=== PATIENT | female | born 1985 | race Caucasian/White ===

== ENCOUNTER 2019-11-25 10:53 | Outpatient (CLI) | payer BC, SELFPAY ==
--- NOTE | ~2019-11-25 | US_ITS ---
EXAMINATION: US pelvic complete w TV EXAM DATE: 11/25/2019 11:57 INDICATION: Ovarian cyst follow-up. TECHNIQUE: Pelvic transabdominal and transvaginal sonogram was performed. There are multiple graysca le and Doppler images available for interpretation. Comparison is made to prior examination from 04/25. FINDINGS: Uterus measures 8.0 x 3.8 x 4.7 cm, with IUD centrally located inside the endometrial cavi ty. Endometrial stripe measures 5 mm, within normal limits. There is no free pelvic fluid. Right adnexa: The ovary measures 2.7 x 1.5 x 1.8 cm, with small hyperechoic region unchanged in size measuring about 9 x 10 x 11 mm, a benign finding. Hyperechogenicity could indicate that this is fat w ithin a small teratoma given that it has persisted. Ovarian vascular flow confirmed. Left adnexa: The ovary measures 1.8 x 1.1 x 1.1 cm and is morphologically normal. Ovarian vascular fl ow confirmed. IMPRESSION: Stable small right ovarian hyperechoic lesion unchanged, a benign finding. Could be small teratoma given that this did not resolve. Reviewed, dictated and finalized at location A. IMPRESSION: Stable small right ovarian hyperechoic lesion unchanged, a benign f inding. Could be small teratoma given that this did not resolve.
== END 2019-11-25 10:54 | disposition home or self-care (01) ==
PROVIDERS: PCP Family Medicine; Visit Provider Obstetrics & Gynecology Gynecology
DX: N83.201 Unspecified ovarian cyst, right side (principal)
CPT/HCPCS: 76830; 76856

== ENCOUNTER → 2020-11-22 08:33 | Outpatient (CLI) | payer BC, SELFPAY ==
--- NOTE | ~2020-11-22 | US_ITS ---
EXAMINATION: US transvaginal DATE: 11/22/2020 09:02 INDICATION: Right ovarian cyst TECHNIQUE: Multiple transabdominal and endovaginal sonographic images of the pelvis were obtained. COMPARISON: 11/25/2019 and 05/15/2019 FINDINGS: The uterus measures 9.2 x 4.3 x 5.2 cm. The endometrial complex measures 5 mm in thickness. T-shaped linear echogenic and shadowing IUD in expected position within the endometrial canal. The right ovar y measures 2.4 x 2.4 x 2.2 cm. No significant interval change in a 10 mm hyperechoic lesion in the ri ght ovary. The left ovary measures 3.6 x 2.3 x 3.4 cm. 2.5 cm anechoic cyst/dominant follicle in the left ovary. Vascular flow identified in both ovaries on color Doppler. There is no free fluid in the pelvis. IMPRESSION: 1. No interval change in a nonspecific 10 mm hyperechoic right ovarian lesion with stability favoring a benign etiology with differential including ovarian dermoid with hyperechoic fat or endometrioma. 2. T-shaped IUD in expected position. Reviewed, dictated and finalized at location A. IMPRESSION: 1. No interval change in a nonspecific 10 mm hyperechoic right ovarian lesion w ith stability favoring a benign etiology with differential including ovarian de rmoid with hyperechoic fat or endometrioma. 2. T-shaped IUD in expected position.
== END ==
PROVIDERS: Visit Provider Nurse Practitioner
DX: N83.201 Unspecified ovarian cyst, right side (principal); Z97.5 Presence of (intrauterine) contraceptive device
CPT/HCPCS: 76830

== ENCOUNTER → 2021-12-18 13:16 | Outpatient (CLI) | payer BC, SELFPAY ==
--- NOTE | ~2021-12-18 | US_ITS ---
EXAMINATION: US transvaginal DATE: 12/18/2021 13:45 INDICATION: Unspecified ovarian cyst TECHNIQUE: Multiple endovaginal sonographic images of the pelvis were obtained. COMPARISON: 11/22/2020, 05/15/2019 FINDINGS: The uterus measures 8.9 x 4.0 x 5.2 cm. The endometrial complex measures 7 mm. An IUD is se en in in expected position. The right ovary measures 2.6 x 1.6 x 2.5 cm. There is a stable, chronic 1 .1 cm hyperechoic lesion in the right ovary. The left ovary measures 3.6 x 2.2 x 3.1 cm. There is nor mal vascular flow in the ovaries. There is no free fluid in the pelvis. IMPRESSION: 1. Hyperechoic lesion of the right ovary, stable since 2018, most consistent with small dermoid or en dometrioma. Reviewed, dictated and finalized at location A. IMPRESSION: 1. Hyperechoic lesion of the right ovary, stable since 2018, most consistent wi th small dermoid or endometrioma.
== END ==
PROVIDERS: PCP Family Medicine; Visit Provider Nurse Practitioner
DX: N83.201 Unspecified ovarian cyst, right side (principal)
CPT/HCPCS: 76830

== ENCOUNTER 2022-02-27 00:27 | Day surgery (SDC) | payer BC, SELFPAY ==
[2022-02-19 12:28] VITALS: BMI 35.4
--- NOTE | 2022-02-19 12:39 | PC.NURSE ---
Report to the Outpatient Waiting Room, entrance under the green pavilion located off [facility], at time 0630 on date 02/27/22. OR Time: 0830. - You and your visitor will be asked to self-screen and do not enter if you have any COVID symptoms. - Only one visitor and NO children visitors are allowed at this time. - The patient visitor is requested to leave or wait in car when not with patient due to restrictions. - A mask is required within the hospital. Patients may have clear liquids (water, carbonated beverages, clear teas, apple juice) until 3 hours prior to surgery with a maximum of 20 ounces. - No food from midnight until time of surgery Take the following medications with a SIP of water the morning of surgery: HYDROXYZINE (IF NEEDED) Medications to discontinue per physician: N/A Date to take last dose: N/A Please no make-up, nail swedish, hairspray, perfume, deodorant, or body powder the day of surgery. No jewelry (including any body piercings) or valuables the day of surgery, leave them at home. Please take a shower or bath the night before, or the morning of, surgery with an antibacterial soap. Wear comfortable, loose fitting clothing. - Jewelry must be removed prior to entering the operating room. Rings and piercings that are not removed may be cut off. - The hospital will not accept responsibility for valuables. - Please leave all valuables, including medications, at home the day of surgery. If you are going home after surgery, a licensed motor coach bus driver must drive you home. - NO public transportation without another adult. - We recommend that an adult stay with you for 24 hours following discharge. - We also recommend that you do not drive, make important decision, drink alcoholic beverages, or take any drugs that were not prescribed by your health care provider for at least 24 hours after your discharge time. Follow any additional instructions given to you from your surgeon. If you or anyone in your household have experienced Covid symptoms in the past week, please notify your surgeon or the nurse liaison at the phone number below for possible testing. Telephone instructions given to PT - DENNIS ERICKSON and asked if any additional questions and then verbalized understanding. Patient advised to call surgeon office or pre surgery nurse liaison [phone] if any additional questions.
[2022-02-27] VITALS (11 sets, daily range): BP systolic 112–138; BP diastolic 66–88; PULSE 64–95; RESP 12–20; TEMP 36.4–36.9; O2SAT 99–100
--- NOTE | 2022-02-27 06:57 | WPDHPUPDATE1 ---
History and Physical Update Update Date/Time: 02/27/22 06:57 History and Physical has been reviewed, including an updated exam of the patient. There are NO changes in the patient's condition. Risks, benefits, and alternatives have been discussed and questions answered. Patient agrees to proceed with procedure.
--- NOTE | 2022-02-27 07:00 | P.OP_ITS ---
Procedure Note - Detailed Date of Procedure 02/27/22 Pre-op Diagnosis Macromastia Post-op Diagnosis Same Procedure Performed Bilateral reduction mammaplasty Surgeon Edgar Meeks MD Anesthesia General Findings Inverted T Superior medial pedicle Tissue removed: Right - 1527.2 grams Left - 1582.9 grams Description of Procedure She is here today for bilateral breast reduction. Previously and again today the risks, benefits, alternatives were discussed in extensive detail. I wanted her to be very realistic about the risks involved as well as expectations. We discussed aftercare and what to monitor for. She understands we can never guarantee final breast size and there will always be asymmetry. I was very upfront and honest about the risks of sensation change and even nipple loss (). Made sure answered all of her questions to her satisfaction today and consent was obtained. She was marked in the preoperative holding area with their verification. The patient was taken to the operating room placed supine on the operating table. Anesthesia was provided by anesthesiology. She was prepped and draped in a standard sterile fashion. A surgical time-out was taken. Stab incisions were made and I tumessed with a tumescent solution. I marked out the nipple-areolar complex at 42 mm. I then de-epithelialized the pedicle. The pedicle was well left well more than 2 cm in thickness. I then removed the inferior portion of the breast as well as the central keel to get shape based on preoperative planning. At this point copiously irrigated with saline solution and verified a strict hemostasis. I reapproximated the pillars using a 2-0 PDS. I tailor tacked the breast into place with suzie. She was placed in a sitting position. I verified the nipple-areolar complex position based on preoperative markings, intraoperative measurements, and observation which were in full agreement. This nipple-areolar complex was marked at 42 mm in size. I then placed supine and de-epithelialized this. Nipple-areolar complex was inset with 3-0 Monocryl. I closed IMF deep with 1 strattafix. I closed the vertical incision with 3-0 Monocryl in the IMF with 3- 0 stratafix. Then everything was closed using a running subcuticular 4-0 Monocr yl followed by Steri-Strips. A dressing was placed followed by surgical bra. Patient was awoke and taken to PACU without difficulty. All instrument sponge counts were correct at the end of the case. Estimated Blood Loss 100 Drains No Packing No Pathology Yes (Bilateral breast tissue) Complications No immediate complications Condition Stable Disposition PACU
[2022-02-27] MEDS: LACTATED RINGERS 1,000 ML 30 ML IV CONT ×2 (07:45→10:45)
--- NOTE | 2022-02-27 07:51 | WPDANESEPPF ---
Anes - Initial Pre Proc Eval Procedure: Operation Date: 02/27/22 08:30 Proposed Procedures p Bilateral Breast Reduction - Edgar Meeks MD Date/Time: 02/27/22 07:51 Surgeon: Edgar Meeks MD Pre Op Diagnosis: Macromastia Patient Data Age: 36 Gender: F Height: 1.75 m Weight: 108.9 kg Allergies Allergy/AdvReac Type Severity Reaction Status Date / Time No Known Allergies Allergy Mild Verified 02/20/22 10:01 Cantaloupe Allergy Mild Rash Uncoded 02/20/22 10:01 HONEYDEW Allergy Mild RASH Uncoded 02/20/22 10:01 Home Medications Medication Instructions Recorded Confirmed Type levonorgestrel 20 mcg/24 hours (7 1 insert intrauterine ONCE 07/12/21 02/19/22 History yrs) 52 mg intrauterine device (Mirena) clobetasol 0.05 % topical cream 1 applic topical BID PRN Rash 02/19/22 02/19/22 History docusate sodium 100 mg capsule 100 mg PO DAILY #14 caps 02/19/22 Rx (Colace) hydrocodone 5 mg-acetaminophen 325 1 tablet PO Q6H PRN pain #30 tabs 02/19/22 02/19/22 Rx mg tablet ondansetron 4 mg disintegrating 4 mg PO Q8H #21 tabs 02/19/22 Rx tablet enoxaparin 40 mg/0.4 mL 40 mg subcut DAILY 02/27/22 02/27/22 History subcutaneous syringe Laboratory Tests 02/27/22 07:35 Cotinine Pending Patient hx anesthesia problems: none Family hx anesthesia problems: none Results Review: All pre-operative results and documents have been reviewed as part of the pre-operative evaluation. [facility] Past Medical History Medical History Migraine Psoriasis Surgical History Surgical History History of spinal fusion Family History Family History Father Family history of diabetes mellitus in first degree relative Family history of coronary artery disease Mother Family history of malignant neoplasm of urinary bladder Social History Social History Smoking status: Never smoker Alcohol intake: current Drinks per week: 2 Alcohol use details: social Substance use: never Substance use type: does not use Living arrangements: with family Gender identity (if verbalized by the patient): Female Sexual Orientation (if Verbalized by the Patient): Straight or Heterosexual Spiritual care concerns: No Anes - Eval Final PreProcedure Day of Procedure 02/27/22 07:51 Patient weight: obese Heart: regular rate and rhythm Lungs: clear to auscultation Airway: Mallampati scale class II Neurological: alert and oriented Last oral intake: >/= 8 hours ASA classification: II Emergent: no Anesthetic plan: proceed Anesthesia type and monitoring: general LMA and ETT and standard monitoring Results Review: All pre-operative results and documents have been reviewed as part of the pre-operative evaluation. Informed Consent: The patient's anesthetic plan and its attendant risks and benefits were discussed with the patient/family/POA. Questions were solicited and answers provided to the satisfaction of the patient/family/POA.
[2022-02-27 07:52] LABS: Urine Cotinine NEGATIVE
[2022-02-27] MEDS: ceFAZolin 2 GM/D5W 50 ML 2 GM/50 ML BAG IVPB (08:07)
[2022-02-27] MEDS: TRANEXAMIC ACID 1,000MG/ISO100 1,000 MG/100 ML BAG 200 MG IVPB (08:18)
[2022-02-27] MEDS: LACTATED RINGERS IRRIG 1,000 ML, LIDOCAINE HCL 1% LOCAL INJ 50 ML, EPINEPHrine HCL INJ ... INFILTRATE (08:35)
[2022-02-27] MEDS: ONDANSETRON INJ 4 MG/2 ML VIAL IV PUSH (11:23)
[2022-02-27] MEDS: diphenhydrAMINE HCl INJ 50 MG/ML VIAL 12.5 MG IV PUSH ×2 (11:32→12:07)
[2022-02-27] MEDS: SCOPOLAMINE 1.5 MG PATCH TRANSDERM (11:33)
[2022-02-27] MEDS: oxyCODONE HCL (*CRX) 5 MG TAB IR PO (13:08)
== END 2022-02-27 13:52 | disposition home or self-care (01) ==
PROVIDERS: PCP Family Medicine; Visit Provider Surgery Plastic and Reconstructive Surgery
PROC: 0HBV0ZZ Excision of Bilateral Breast, Open Approach (ICD-10-PCS; CPT 19318; principal; 2022-02-27 08:30)
DX: N62 Hypertrophy of breast (principal); L40.9 Psoriasis, unspecified; Z98.1 Arthrodesis status; Z79.899 Other long term (current) drug therapy; E66.9 Obesity, unspecified; Z68.35 Body mass index [BMI] 35.0-35.9, adult
CPT/HCPCS: 19318; 80307; 88305; A9270; J0171; J0690; J1100; J1170; J1200; J1630; J2250; J2405; J2704; J3010; J7120

== ENCOUNTER 2022-06-27 11:38 | Outpatient (CLI) | payer BC, SELFPAY ==
[2022-06-27 12:53] LABS: Influenza A QL RT-PCR Negative (Negative); Influenza B QL RT-PCR Negative (Negative); SARS-CoV-2 RNA PCR Negative
== END 2022-06-27 11:39 | disposition home or self-care (01) ==
PROVIDERS: PCP Family Medicine; Visit Provider Physician Assistant
DX: R50.9 Fever, unspecified (principal); Z20.822 Contact with and (suspected) exposure to COVID-19
CPT/HCPCS: 87636

== ENCOUNTER → 2022-07-31 10:00 | Outpatient (CLI) | payer BC, SELFPAY ==
--- NOTE | ~2022-07-31 | MMUS_ITS ---
EXAMINATION: MM diagnostic francisco BI w jimena, US breast BI complete HISTORY: There is a ridge along the reduction mammoplasty scar of the right breast TECHNIQUE: Full field and spot bilateral ML, MLO and CC 3-D tomosynthesis images were performed and s ynthetic 2-D images were generated. CAD analysis was submitted and interpreted. High resolution compl ete bilateral breast ultrasound examination including all 4 quadrants and subareolar areas was perfor med. COMPARISON: None BREAST PARENCHYMAL COMPOSITION: The breasts are heterogeneously dense, which may obscure small masses . FINDINGS: MAMMOGRAPHIC FINDINGS: There is fibroglandular asymmetry, likely due to bilateral reduction mammoplasty. No suspicious repro ducible mass is evident. There is asymmetry, likely due to bilateral reduction mammoplasty. No malign ant calcification, skin thickening or retraction is noted. ULTRASOUND: Right breast: Circumscribed 3.3 x 3.3 x 3.5 mm probable benign lesion, possibly a lymph node, at 9:00 6 cm from nip ple Left breast: 1:00 subareolar area: 3.2 x 2.7 x 3.2 mm circumscribed sonolucency without internal vascularity or po sterior features 5:00-6:00 scar, 4 cm from nipple: 4.5 x 4.9 mm hypoechoic area without internal vascularity or window installation subcontractor ior features IMPRESSION: 1. Probable benign findings; probable postoperative change from bilateral reduction mammoplasty 2. Six-month diagnostic bilateral mammogram and bilateral breast ultrasound follow-up is recommended BI-RADS category 3, probably benign findings. Reviewed, dictated and finalized at location A. ER MAKER IMPRESSION: 1. Probable benign findings; probable postoperative change from bilateral reduc tion mammoplasty 2. Six-month diagnostic bilateral mammogram and bilateral breast ultrasound fol low-up is recommended BI-RADS category 3, probably benign findings.
== END ==
PROVIDERS: PCP Obstetrics & Gynecology Gynecology; Visit Provider Obstetrics & Gynecology Gynecology
DX: N63.10 Unspecified lump in the right breast, unspecified quadrant (principal); R92.8 Other abnormal and inconclusive findings on diagnostic imaging of breast
CPT/HCPCS: 76641; 77062; 77066; G0279

== ENCOUNTER → 2022-12-26 10:58 | Outpatient (CLI) | payer BC, SELFPAY ==
--- NOTE | ~2022-12-26 | US_ITS ---
EXAMINATION: US transvaginal DATE: 12/26/2022 11:24 INDICATION: Unspecified ovarian cyst, right side. TECHNIQUE: Multiple transvaginal sonographic images of the pelvis were obtained. COMPARISON: Ultrasound 12/18/2021, 05/15/19 FINDINGS: The uterus measures 9.0 x 4.6 x 9.4 cm. There is no free fluid in the pelvis. The endometrial complex measures 6 mm in thickness. There is an intrauterine device in expected position. The right ovary me asures 3.1 x 2.0 x 2.6 cm. There is a 1.2 cm hyperechoic mass in right ovary. The left ovary measures 3.0 x 2.0 x 2.4 cm. IMPRESSION: 1. 1.2 cm hyperechoic mass in right ovary, stable from 05/15/2019, likely a benign mass such as a tina moid or endometrioma. Reviewed, dictated and finalized at location A. IMPRESSION: 1. 1.2 cm hyperechoic mass in right ovary, stable from 05/15/2019, likely a russell ign mass such as a dermoid or endometrioma.
== END ==
PROVIDERS: PCP Family Medicine; Visit Provider Nurse Practitioner
DX: N83.201 Unspecified ovarian cyst, right side (principal); N83.9 Noninflammatory disorder of ovary, fallopian tube and broad ligament, unspecified
CPT/HCPCS: 76830

== ENCOUNTER → 2023-01-28 09:21 | Outpatient (CLI) | payer BC, SELFPAY ==
--- NOTE | ~2023-01-28 | MMUS_ITS ---
EXAMINATION: MM diagnostic francisco BI w jimena, US breast BI limited HISTORY: Six-month follow-up for probably benign breast masses TECHNIQUE: Craniocaudal, mediolateral, and mediolateral oblique 3-D tomosynthesis images of the breas ts were performed and synthetic 2-D images were generated. CAD analysis was submitted and interpreted . High resolution limited bilateral breast ultrasound was performed. COMPARISON: 07/31/2022 BREAST PARENCHYMAL COMPOSITION: There are scattered areas of fibroglandular density. FINDINGS: MAMMOGRAPHIC FINDINGS: No suspicious mass, calcification, or architectural distortion are identified in either breast to sug gest malignancy. There has been no suspicious interval change. ULTRASOUND: Previously described sonographically detected masses at the 9:00 location of the right breast in the 1:00 location of the left breast are no longer identified. There is a stable hypoechoic mass at the 5 :30 location 4 cm from the nipple of the left breast near the area of the reduction mammoplasty scar. IMPRESSION: 1. Probably benign changes of the left breast related to reduction mammoplasty. 2. Recommend 6 month follow-up limited left breast ultrasound. BI-RADS category 3, probably benign findings. Reviewed, dictated and finalized at location A. IMPRESSION: 1. Probably benign changes of the left breast related to reduction mammoplasty. 2. Recommend 6 month follow-up limited left breast ultrasound. BI-RADS category 3, probably benign findings.
== END ==
PROVIDERS: PCP Family Medicine; Visit Provider Obstetrics & Gynecology Gynecology
DX: R92.8 Other abnormal and inconclusive findings on diagnostic imaging of breast (principal)
CPT/HCPCS: 76642; 77062; 77066; G0279

== ENCOUNTER 2023-08-01 16:36 | Outpatient (CLI) | payer BC, SELFPAY ==
--- NOTE | ~2023-08-01 | XR_ITS ---
EXAMINATION: XR chest 2V DATE: 08/01/2023 16:51 INDICATION: Cough. Shortness of breath. TECHNIQUE: Frontal and lateral views of the chest were obtained. COMPARISON: Chest 2 views 08/27/2012 FINDINGS: There is no pneumonia, pleural effusion, or pneumothorax. The heart size is normal. There i s mild chronic anterior wedging of vertebral bodies at thoracolumbar junction. IMPRESSION: 1. No acute cardiopulmonary disease. Reviewed, dictated and finalized at location E. ER HAND
== END 2023-08-01 16:37 | disposition home or self-care (01) ==
LOC: ANHIMG 16:36
PROVIDERS: PCP Family Medicine; Visit Provider Physician Assistant Medical
DX: R50.9 Fever, unspecified (principal); R05.9 Cough, unspecified
CPT/HCPCS: 71046

== ENCOUNTER → 2023-08-06 10:08 | Outpatient (CLI) | payer BC, SELFPAY ==
--- NOTE | ~2023-08-06 | US_ITS ---
EXAMINATION: US breast LT limited HISTORY: Six-month follow-up for probably benign left breast mass TECHNIQUE: Limited left breast ultrasound is performed FINDINGS: No persistent mass is identified at the 5:30 location in the left breast. There is shadowin g in the area of the reduction mammoplasty scar. IMPRESSION: No suspicious sonographically detected mass identified. Continued clinical follow-up is recommended. BI-RADS Category 2: Benign finding(s). Reviewed, dictated and finalized at location A. ERY ANALYST IMPRESSION: No suspicious sonographically detected mass identified. Continued clinical foll ow-up is recommended. BI-RADS Category 2: Benign finding(s).
== END ==
PROVIDERS: PCP Family Medicine; Visit Provider Obstetrics & Gynecology Gynecology
DX: N63.20 Unspecified lump in the left breast, unspecified quadrant (principal); R92.8 Other abnormal and inconclusive findings on diagnostic imaging of breast
CPT/HCPCS: 76642

== ENCOUNTER 2023-09-26 09:53 | Outpatient (CLI) | payer BC, SELFPAY ==
--- NOTE | ~2023-09-26 | DEXA_ITS ---
Bone Density Report Name: DENNIS ERICKSON Age: 37 Sex: Female Ethnicity: White Date of : 1985 Indication: prior fracture; Referring Provider: DAGOBERTO GAMBLE Study: Bone densitometry was performed. Exam Date: September 26, 2023 Accession number: [id number] Bone Density: Region BMD T-score Z-score Classification AP Spine (L1, L2, L3) 1.062 0.4 0.5 Normal Femoral Neck (Left) 1.017 1.5 1.7 Normal Total Hip (Left) 1.149 1.7 1.8 Normal Femoral Neck (Right) 1.032 1.7 1.8 Normal Total Hip (Right) 1.102 1.3 1.4 Normal Total Hip Mean 1.126 1.5 1.6 Normal World Health Organization criteria for BMD impression classify patients as: Normal (T-score at or above -1.0), Osteopenia (T-score between -1.0 and -2.5), or Osteoporosis (T-score at or below -2.5). 10-year Fracture Risk: FRAX not reported because: Premenopausal woman All T-scores for Spine Total, Hip Total, Femoral Neck at or above -1.0 Prior hip or vertebral fracture Clinical Information Provided by Patient: Have had a previous hip or vertebral fracture Has had a low trauma fracture Patient maximum height was 69.5 No regular weight bearing exercise Drinks caffeinated beverages Onset of menses at age 18 Premenopausal Number of children 2 Missed period for more than 6 months in a row Impression: The patient's bone mass is within expected range for age, gender and ethnicity. The patient has risk factors, including: previous fracture. Discussion: BONE DENSITY IS WITHIN EXPECTED LIMITS FOR AGE, SEX AND RACE. HISTORY OF FRACTURE. Although there is a predictable association between low bone mass and the risk of osteoporotic fractures in untreated postmenopausal women, there are no data relating bone density and fracture risk in younger women. The ISCD position is that the diagnosis of ?low bone mass? or ?osteoporosis? should not be made on densitometric criteria alone. WHO criteria only apply to postmenopausal women. Further evaluation should be considered given the patient's history of fracture at a young age. The patient should follow a healthful lifestyle (good nutrition with adequate calcium and vitamin D, and appropriate weight-bearing exercise). Follow-Up: Consider a repeat BMD and Vertebral Fracture Assessment (VFA) exam in 2 years or sooner if medically necessary, to reassess this patient's status. Reported by: GENESIS on 09/26/2023 10:11:00 AM. Reviewed, dictated and finalized at location A. [facility]
== END 2023-09-26 09:54 ==
LOC: MICIMG 09:54
PROVIDERS: PCP Physician Assistant Medical; Visit Provider Physician Assistant Medical
DX: M48.50XA Collapsed vertebra, not elsewhere classified, site unspecified, initial encounter for fracture (principal)
CPT/HCPCS: 77080

== ENCOUNTER 2025-04-11 15:46 | Emergency (ER) | payer BC, SELFPAY ==
[2025-04-11 15:59] VITALS: BP 115/67; PULSE 92; RESP 16; TEMP 36.2; O2SAT 99
--- NOTE | 2025-04-11 16:25 | ED_ITS ---
HPI - URI/Sore Throat General Chief Complaint: Upper Respiratory Infection Stated Complaint: strep symptoms, sore throat Time Seen by Provider: 04/11/25 16:14 Source: patient, RN notes reviewed and old records reviewed Mode of arrival: ambulatory Limitations: no limitations History of Present Illness HPI Narrative: 39-year-old female patient presents today complaining of a sore throat. She was started on amoxicillin on 03/29/2025 for strep throat by her PCP and finished the full prescription. States symptoms had almost fully resolved. Her last dose was 3 days ago. Today, her sore throat returned and has worsened. She also had a large tonsil stone that she dislodged. Denies any current fever. Related Data Home Medications ?Medication ?Instructions ?Recorded ?Confirmed ?Last Taken ?Type levonorgestrel (Mirena) 1 insert intrauterine ONCE 0 07/12/21 03/29/25 Unknown History Allergies Allergy/AdvReac Type Severity Reaction Status Date / Time Cantaloupe Allergy Mild Rash Uncoded 03/29/25 16:16 HONEYDEW Allergy Mild RASH Uncoded 03/29/25 16:16 [facility] Past Medical History Medical History Psoriasis Migraine Surgical History Surgical History History of spinal fusion Family History Family History Father Family history of diabetes mellitus in first degree relative Family history of coronary artery disease Mother Family history of malignant neoplasm of urinary bladder Social History Social History Smoking status: Never smoker Alcohol intake: current Drinks per week: 2 Alcohol use details: social Substance use: never Substance use type: does not use Living arrangements: with family Occupation/Education: occupation Gender identity (if verbalized by the patient): Female Sexual Orientation (if Verbalized by the Patient): Straight or Heterosexual Spiritual care concerns: No Comments At time of signature, I have reviewed and agree with nursing past medical, surgical, social and family history unless otherwise noted. Please see nursing chart for further information. There is no relevant family history pertinent to the presenting complaint Exam Narrative: GENERAL: Mildly ill-appearing, well-nourished, and in no acute distress. HEAD: Normocephalic, atraumatic. EYES: EOMI. No redness or drainage. Conjunctivae normal. ENT: Mucous membranes pink and moist. Nares clear. No rhinorrhea. TMs normal bilaterally. Throat erythematous. Tonsils 3+ without exudate. Uvula midline. NECK: Normal AROM. Supple. No lymphadenopathy. CHEST: No respiratory distress. Clear to auscultation. HEART: Regular rate and rhythm. No murmur appreciated. EXTREMITIES: Normal range of motion. No edema. SKIN: Warm, dry, no rash. Capillary refill normal. Normal skin turgor. NEURO: No focal deficits. Alert and oriented x3. Gait steady. PSYCH: Normal affect. No signs of depression or anxiety. Course Course Level of Care: Express Care Visit Vital Signs Vital signs: Vital Signs Temperature 97.1 F L 04/11/25 15:59 Pulse Rate 92 04/11/25 15:59 Respiratory Rate 16 04/11/25 15:59 Blood Pressure 115/67 04/11/25 15:59 Pulse Oximetry 99 04/11/25 15:59 Temperature 97.1 F L 04/11/25 15:59 Pulse Rate 92 04/11/25 15:59 Respiratory Rate 16 04/11/25 15:59 Blood Pressure 115/67 04/11/25 15:59 Pulse Oximetry 99 04/11/25 15:59 Reviewed MDM - URI/Sore Throat MDM Narrative Medical decision making narrative: 39-year-old female patient presents today complaining of a sore throat. She was started on amoxicillin on 03/29/2025 for strep throat by her PCP and finished the full prescription. States symptoms had almost fully resolved. Her last dose was 3 days ago. Today, her sore throat returned and has worsened. Upon exam, patient is mildly erythematous tonsils that are 3+ without exudate. Rapid strep positive. Prescription for Augmentin sent to pharmacy. Anticipatory guidance given. Vital signs stable. Patient agrees with plan. Recommend PCP or ENT follow-up if symptoms persist. Differential Diagnosis Differential diagnosis: Likely upper respiratory infection, viral infection, pharyngitis and other (strep throat) Lab Data Attestation: I reviewed the patient's lab results. Labs: Lab Results 04/11/25 Range/Units 16:32 POC Grp A Strep Screen Positive (Negative) Critical Care Time Critical Care Time Critical Care Time: No Discharge Plan Discharge Clinical Impression: Strep throat Patient Disposition: Home Condition: Stable Instructions: Antibiotic Form, Strep Throat (DC) Additional Instructions: You have tested positive for strep throat. Please take the Augmentin as prescribed until gone. You will be contagious for 24 hours after starting the medication. Take Tylenol or Ibuprofen for pain or fever, if able. Rest and stay hydrated. Follow up with your PCP in 3 days if symptoms are not improving. Go to the ER immediately if you develop worsening symptoms such as shortness of breath, difficulty swallowing. Patient Language: Emirati Prescriptions: New amoxicillin-pot clavulanate 875-125 mg tablet 1 tablet PO Q12H 10 Days Qty: 20 0RF No Action Mirena 20 mcg/24 hours (7 yrs) 52 mg intrauterine device 1 insert intrauterine ONCE Rx Instructions: as a single dose fluoxetine 20 mg capsule See Rx Instructions .ROUTE .COMPLEX Qty: 90 2RF Dose Instruction: TAKE 1 CAPSULE BY MOUTH DAILY FOR ANXIETY Rx Instructions: TAKE 1 CAPSULE BY MOUTH DAILY FOR ANXIETY Follow-up/Referrals: Angus Fox MD [Primary Care Provider, Family Practice] Stand Alone Forms: Work/School Release IP Time of Disposition: 16:37
[2025-04-11 16:36] LABS: EDSTREPNEGPOS1 Positive (Negative)
== END 2025-04-11 16:40 | disposition home or self-care (01) ==
PROVIDERS: Emergency Provider Nurse Practitioner; PCP Family Medicine
DX: J02.0 Streptococcal pharyngitis (principal)
CPT/HCPCS: 87880; 99213; G0463

== ENCOUNTER 2025-05-26 13:10 | Outpatient (CLI) | payer BC, SELFPAY ==
--- OUTSIDE RECORDS SUMMARY | 2025-05-26 14:23 | XMS_ITS | Clinical Summary ---
Author Organization [facility] Address [address] [place] [address] Care Team Providers Care Computer Programmer Analyst Name Role Phone Angus Fox MD Primary Care Provider [phone] Source Comments [facility],non-owned Affiliates and Associated Physician Practices is amultiple site organization consisting of ambulatory clinics and hospital sitesin [place], [place], [place] and [place]. This disclosure is being madepursuant to the Care Everywhere program and may not contain all information available regarding this patient. Last updated 18.[facility] Allergies Active Allergy Reactions Criticality Noted Date Comments Honeydew Urticaria Medium 12/18/2018 Medications * Be aware that medications may not be up to date on this document. Alwaysverify current medications with the patient. Vit-Fe Fumarate-FA ( VITAMIN) 28-0.8 MG tablet Take 1 tablet by mouth once daily Active escitalopram (LEXAPRO) 10 MG tablet Take 10 mg by mouth once daily Active NORETHINDRONE ACETATE PO Active Active Problems Problem Noted Date Diagnosed Date Threatened premature labor, antepartum 9 Immunizations Immunization Administration Dates Next Due [facility] [employer] primary monoval ent 12+ yr 0.3mL Purple cap 07/05/2020,06/15/2020 Social History Tobacco Use Types Packs/Day Years Used Date Smoking Tobacco: Never Smokeless Tobacco: Never Alcohol Use Standard Drinks/Week Comments No 0 (1 standard drink = 0.6 oz pur e alcohol) Comments No Sex and Gender Information Value Date Recorded Sex Assigned at Female 06/16/2020 12:47 AM [employer] Legal Sex Female 12:24 PM [employer] Gender Identity Female 06/16/2020 12:47 AM [employer] SANITARIAN Sexual Orientation Straight 06/16/2020 12 :47 AM [employer] SANITARIAN Last Filed Vital Signs Vital Sign Reading Time Taken Comments Blood Pressure 108/68 02/21/2019 10:44 AM CDT Pulse 87 02/21/2019 10:44 AM CDT Temperature 36.9 C (98.4 F) 02/21/2019 10:44 AM CDT Respiratory Rate - - Oxygen Saturation 97% 02/21/2019 10:44 AM CDT Inhaled Oxygen Concentration - - Weight 99.8 kg (220 lb) 02/21/2019 10:44 AM CDT Height 175.3 cm (5' 9) 02/21/2019 10:44 AM CDT Body Mass Index 32.49 02/21/2019 10:44 AM CDT Plan of Treatment Health Maintenance Due Date Last Done Comments HIV SCREENING 11/08/2002 HEPATITIS C SCREENING 11/04/2005 DTAP/TDAP/TD VACCINES (1 - Tdap) 11/08/2006 HEPATITIS B VACCINE (1 of 3 - 19+ 3-dose series) 11/08/2006 HPV VACCINE (1 - 3-dose SCDM series) 11/08/2014 DEPRESSION SCREENING 06/24/2024 COVID-19 VACCINE (3 - 2024-2 6 season) 2025 07/05/2020, 06/15/2020 INFLUENZA VACCINE (#1) 2025 ZOSTER VACCINE (1 of 2) 11/08/2037 HIB VACCINE Aged Out No longer eligi ble based on patient's age to complete this topic MENINGOCOCCAL (Group B) VACCINE SHARED DECISION-MAKING Aged Out No longer eligible based on patient's age to complete this topic MENINGOCOCCAL GROUPS A/C/Y/W VACCINE Aged Out No longer eligible b ased on patient's age to complete this topic PNEUMOCOCCAL VACCINE Aged Out No long er eligible based on patient's age to complete this topic Insurance [employer] SELF PAY NO INSURANCE Member Subscriber Plan / Payer (Ef fective for All Dates) Name:Traci Erickson Member ID:Not on file Relation to Subscriber:Self Name:Traci Erickson Subscriber ID:Not on file Payer ID:Not on file Group ID:Not on file Type:Self Pay Address: [place], [place] ANTHEM Care Teams Computer Programmer Analyst Relationship Specialty Start Date End Date Angus Fox MD [address] [place] [address] PCP - General Family Medicine 12/18/18
== END 2025-05-26 13:11 | disposition home or self-care (01) ==
LOC: ANHLAB 13:13
PROVIDERS: PCP Family Medicine; Visit Provider Physician Assistant Medical
DX: J02.0 Streptococcal pharyngitis (principal)
CPT/HCPCS: 87081